=== PATIENT | female | born 1980 | race Two or more races ===

== ENCOUNTER → 2025-02-06 06:55 | Outpatient (BNV) | payer OTHER, SELFPAY | PROVIDERS: Visit Provider Radiology Diagnostic Radiology | DX: M25.551 Pain in right hip (principal); M25.512 Pain in left shoulder | CPT/HCPCS: 73030; 73502 ==

== ENCOUNTER 2025-02-06 07:20 | Emergency (ER) | payer OTHER, MEDICAID, SELFPAY ==
--- NOTE | ~2025-02-06 | XR_ITS ---
EXAMINATION: XR HIP 2 OR MORE VIEWS RIGHT HISTORY: fall COMPARISON: There are no prior studies available for comparison. FINDINGS: Two views of the right hip are submitted. Osseous mineralization is normal. There is no fracture or dislocation. The joint space is maintained. The soft tissues are unremarkable. XR/XR hip RT min 2V IMPRESSION: Unremarkable examination of the right hip. Electronically signed by: Bradford Askwe MD 02/06/2025 07:59 AM EDT
--- NOTE | ~2025-02-06 | XR_ITS ---
EXAMINATION: XR SHOULDER 2 OR MORE VIEWS LEFT HISTORY: fall COMPARISON: There are no prior studies available for comparison. FINDINGS: Four views of the left shoulder are submitted. Osseous mineralization is normal. There is no fracture or dislocation. The glenohumeral and acromioclavicular joint spaces are preserved. Incidental note is made of a calcified granuloma in the left upper lobe of the lung. XR/XR shoulder LT min 2V IMPRESSION: Unremarkable examination of the left shoulder. Electronically signed by: Bradford Askew MD 02/06/2025 08:00 AM EDT
[2025-02-06 07:31] VITALS: BP 109/58; PULSE 73; RESP 17; TEMP 36.1; O2SAT 99; BMI 28.3
[2025-02-06 08:45] VITALS: BP 110/72; PULSE 65; PULSE 67; RESP 18; TEMP 36.6; O2SAT 100
--- OUTSIDE RECORDS SUMMARY | 2025-02-06 08:49 | XMS_ITS | Clinical Summary ---
Author Organization [employer] [facility] ity Address [address] [place] [address] Care Team Providers Care Regulatory Affairs Consultant Name Role Phone Unavailable Primary Care Provider Unavailabl e Social History Tobacco Use Types Packs/Day Years Used Date Smoking Tobacco: Never Assessed Comments Unknown Sex and Gender Information Value Date Recorded Sex Assigned at Not on file Legal Sex Female 8:51 PM EST Gender Identity Not on file Sexual Orientation Not on file Plan of Treatment Health Maintenance Due Date Last Done Comments Breast Cancer Screening 1980 DTaP,Tdap,and Td Vaccines (1 - Tdap) 1999 Hepatitis B Vaccines (1 of 3 - 19+ 3-dose series) 1999 Cervical Cancer Screening: P ap Smear 2001 HIV Screening 08/04/2023 Hepatitis C Screening 08/04/2023 Social Influencers of Health Screening 08/04/2023 COVID-19 Vaccine (2023-2 5 season) 2024 Depression Screening 07/10/2024 Influenza Vaccine (#1) 2025 HIB Vaccines Aged Out No longer eligi ble based on patient's age to complete this topic HPV Vaccines Aged Out No longer eligi ble based on patient's age to complete this topic Hepatitis A Vaccines Aged Out No long er eligible based on patient's age to complete this topic IPV Vaccines Aged Out No longer eligi ble based on patient's age to complete this topic MMR Vaccines Aged Out No longer eligi ble based on patient's age to complete this topic Meningococcal ACWY Vaccine Aged Out N o longer eligible based on patient's age to complete this topic Meningococcal B Vaccine Aged Out No l onger eligible based on patient's age to complete this topic Pneumococcal Vaccine: Pediat rics (0 to 5 Years) and At-Risk Patients (6 to 49 Years) Aged Out No longer eligible b ased on patient's age to complete this topic RSV Immunization Patients Un prudencio 20 months Aged Out No longer eligible b ased on patient's age to complete this topic Varicella Vaccines Aged Out No longer eligible based on patient's age to complete this topic
--- NOTE | 2025-02-06 08:53 | PC.NURSE ---
44 F presents to ED with R hip and L shoulder pain from a slip and fall at work today on a wet floor, no LOC or head strike. Pt sts she slipped and fell at work last week as well. Pt is ambulatory, A+OX4, uzbek speaking. RR even and unlabored, denies CP or SOB. Denies n/v/c/d. C/o 8/10 pain. No other complaints.
--- NOTE | 2025-02-06 09:08 | ED_ITS ---
HPI - Fall General Chief Complaint: Fall Stated Complaint: Fall @ work - arm pain Time Seen by Provider: 02/06/25 09:04 Source: patient, RN notes reviewed and old records reviewed Mode of arrival: ambulatory Limitations: no limitations History of Present Illness ED Provider: Rosendo Esposito PA-C HPI Narrative: 44 yo female presents to the ER for evaluation of left should pain and right hip pain s/p 2 mechanical falls at work 2 days ago. she states her initial fall was 1 week ago when she tripped over a mop and fell onto her right hip. Two days ago she slipped on water and fell onto her left shoulder. She has had limited range of motion of the left shoulder and pain since then. She is right-hand dominant. She did not hit her head or lose consciousness with either fall. She is not on anticoagulation. She reports minimal relief with Aleve at home. She denies any numbness, tingling or weakness in her left arm but it is difficult for her to arrange the shoulder due to pain that is located anteriorly, laterally and posteriorly. She has no chest pain or shortness of breath associated with this. Her right hip is sore when she ambulates and she is walking with a limp. She denies any swelling in the leg, no pain in the right knee or ankle MD complaint: fall Onset (ago): day(s) Fall from: standing Fall witnessed: yes, by bystander Place fall occurred: work Loss of consciousness: none Prolonged down time: no Symptoms prior to fall: none Context: tripped/slipped Location of injury: pelvis (right) Location of injury - extremities: left: shoulder Severity: moderate Severity scale (1-10): 7 Quality: aching Associated symptoms (after fall): denies Related Data Previous Rx's ?Medication ?Instructions ?Recorded cyclobenzaprine 10 mg tablet 10 mg PO TID PRN muscle p ain #10 02/06/25 tabs lidocaine 5 % topical patch 1 patch topical DAILY #15 ea 02/06/25 naproxen 500 mg tablet 500 mg PO BID PRN pain #20 t abs 02/06/25 Allergies Allergy/AdvReac Type Severity Reaction Status Date / Time No Known Allergies Allergy Verified 02/06/25 07:35 Review of Systems Review of Systems: Yes all other systems are reviewed and are negative [facility] Social History Social History Smoked in Last 30 Days: No Use of substances other than those prescribed or required for medical reasons: No Advance Directives: No Advance Directives Information Provided: Yes Do you have a plan to hurt others: No Plan Patient : No Physical Exam Exam: Exam: Appearance: Alert. Oriented X3. No acute distress. HEENT: normal inspection CVS: Normal heart rate and rhythm. Pulses normal. Respiratory: No respiratory distress. nontender chest wall. Lungs are clear throughout Skin: Skin warm and dry. Normal skin color. Normal skin turgor. No rashes. Extremities: normal inspection of all 4 extremities. No joint swelling or deformities. Left shoulder with tenderness to the left AC joint. Limited passive range of motion anteriorly and laterally during abduction, pain elicited at 90 degrees. Unable to raise left arm above the head. Positive empty can test. right hip is normal to inspection without any ecchymosis or swelling. She has soft tissue tenderness laterally Neuro: Oriented X 3. No motor deficit. No sensory deficit. slightly antalgic but steady gait Vital Signs: Vital Signs: Last Vital Signs Temp 0 F L 02/06/25 10:05 Pulse 65 02/06/25 10:05 Resp 18 02/06/25 10:05 BP 113/74 02/06/25 10:05 Pulse Ox 100 02/06/25 10:05 O2 Del Method Room Air 02/06/25 10:05 BMI result Body Mass Index 28.3 Medical Decision Making Medical Decision Making MDM Narrative: 44-year-old Chinese-speaking female presents to the ER for evaluation of left shoulder pain and right hip pain after multiple falls at work in the last week. She is ambulatory. She has limited range of motion of the left upper extremity due to pain. Pain is pretty diffuse and can be elicited when palpating anteriorly, laterally and posteriorly. She has positive empty can test. Her x- ray is negative. There is concern for possible ligamentous injury rotator cuff injury so it is advised that she follows up with orthopedics for further evaluation and treatment. set up mold technician used to discuss supportive care including activity modification, NSAIDs, rest, ice. Patient agrees with plan. As far as her hip is concerned most likely soft tissue injury and contusion. No evidence of fracture on her x-ray. NSAID, rest, ice or heat will also help with this pain. Stable for discharge home. Differential Diagnosis Differential Diagnoses: The differential diagnosis associated with the presentation includes left shoulder sprain / strain, AC joint separation, rotator cuff injury, clavicular fracture, proximal humerus fracture right hip fracture, right hip contusion, bursitis, pubic rami fracture Independent Interpretation I performed an independent interpretation of an: Plain X-Ray Interpretation: No acute fracture appreciated in the left shoulder or the right hip Prescription Management I considered prescription management with: Pain Medication Critical Care Time Critical Care Time Critical Care Time: No Discharge Plan Discharge Clinical Impression: Acute pain of left shoulder Contusion of hip, right Qualifiers: Encounter type: initial encounter Qualified Code(s): S70.01XA - Contusion of right hip, initial encounter Patient Disposition: Home, Self-Care Instructions: Shoulder Pain (ED), Hip Contusion (ED) Additional Instructions: your x-rays today were normal. There is concern for possible ligamentous injury in your shoulder. Recommend following up with orthopedics for further evaluation and treatment. Take the prescribed medications as directed. Recommend ice several times per day as needed for pain. Avoid heavy lifting or any movements that exacerbate the pain in your shoulder. Follow up with her primary care doctor If you develop new or worsening symptoms call 911 or come back to the ER for further evaluation. Prescriptions: New cyclobenzaprine 10 mg tablet 10 mg PO TID PRN (Reason: muscle pain) Qty: 10 0RF lidocaine 5 % adhesive patch,medicated 1 patch topical DAILY Qty: 15 0RF Rx Instructions: leave on most painful area for up to 12 hrs naproxen 500 mg tablet 500 mg PO BID PRN (Reason: pain) Qty: 20 0RF Referrals: [facility] [place] [facility] [Provider Group] Referral Note: left shoulder injury concern for rotator cuff injury Stand Alone Forms: Work/School Release Interventions: ED Discharge Assessment Last Done: 02/06/25 10:05 Discharge Date/Time: 02/06/25 10:06 Print Language: Malay
[2025-02-06 10:05] VITALS: BP 113/74; PULSE 65; RESP 18; TEMP -17.7; TEMP 0; O2SAT 100
== END 2025-02-06 10:06 | disposition home or self-care (01) ==
PROVIDERS: Emergency Provider Emergency Medicine Emergency Medical Services
DX: S70.01XA Contusion of right hip, initial encounter (principal); R10.2 Pelvic and perineal pain; M25.551 Pain in right hip; M25.512 Pain in left shoulder; W01.0XXA Fall on same level from slipping, tripping and stumbling without subsequent striking against object, initial encounter; Y93.E5 Activity, floor mopping and cleaning; Y92.000 Kitchen of unspecified non-institutional (private) residence as the place of occurrence of the external cause; Y99.8 Other external cause status
CPT/HCPCS: 73030; 73502; 99283; 99284

== ENCOUNTER → 2025-02-19 12:34 | Outpatient (BNVA) | payer OTHER, SELFPAY | PROVIDERS: Visit Provider Physician Assistant Medical | DX: S46.912D Strain of unspecified muscle, fascia and tendon at shoulder and upper arm level, left arm, subsequent encounter (principal); W01.0XXD Fall on same level from slipping, tripping and stumbling without subsequent striking against object, subsequent encounter | CPT/HCPCS: 99204 ==

== ENCOUNTER → 2025-03-05 13:11 | Outpatient (BNVA) | payer OTHER, SELFPAY | PROVIDERS: Visit Provider Physician Assistant | DX: S46.912D Strain of unspecified muscle, fascia and tendon at shoulder and upper arm level, left arm, subsequent encounter (principal); W01.0XXD Fall on same level from slipping, tripping and stumbling without subsequent striking against object, subsequent encounter | CPT/HCPCS: 99213 ==

== ENCOUNTER 2025-03-13 18:28 | Outpatient (REF) | payer OTHER, SELFPAY ==
--- NOTE | ~2025-03-13 | MR_ITS ---
EXAMINATION: MR SHOULDER WITHOUT CONTRAST, LEFT CLINICAL INFORMATION: Pain and limited range of motion, left shoulder COMPARISON: Correlated to x-ray dated February 06, 2025. TECHNIQUE: MRI of the shoulder without contrast was performed on a high-field scanner. FINDINGS: ROTATOR CUFF: There is mild signal abnormality within the mild tendon fibers of the supraspinatus tendon and supraspinatus tendon insertion. Subcortical cyst in the humeral head at the supraspinatus tendon insertion. There is some small amount of fluid in the superior margin of the supraspinatus myotendinous, and tendon region. There is no retraction of the supraspinatus tendon. There is trace of fluid surrounding the infraspinatus tendon. The subscapularis is intact without signal abnormality. BICEPS: The bicipital long tendon is intact with the minimal trace of fluid surrounded the sheath. CORACOACROMIAL ARCH: The undersurface of the acromion is curved with there is inferior spur at the acromioclavicular joint resulting in superior concave deformity of the mild tendon of the supraspinatus. Degenerative changes along the articular surface of the acromioclavicular joint and trace of fluid. LABRUM/CAPSULE: Anterior and posterior labrum are intact. There is a small amount of free fluid in the glenohumeral joint. GLENOHUMERAL JOINT/MARROW: Subchondral cyst formation in the greater tuberosity of the humerus. There is small amount of free fluid in the glenohumeral joint extending into the subcoracoid bursa. There is an 8.5 mm septated hyperintense T2 lesion at the left humeral anatomic neck. MR/MR shoulder LT wo con IMPRESSION: Supraspinatus and infraspinatus tendinosis/tendinopathy secondary to inferior acromioclavicular joint spur. Impingement syndrome should be considered. No full-thickness rotator cuff tendon tear. Bone contusion, greater tuberosity left humerus. Probable mild subcoracoid bursitis. 8.5 mm, probable benign bone lesion, anatomic neck, left humerus. . Electronically signed by: Cisco Sarabia MD 03/14/2025 09:32 AM EDT
--- OUTSIDE RECORDS SUMMARY | 2025-03-13 18:32 | XMS_ITS | Clinical Summary ---
Author Organization [employer] [facility] ity Address [address] [place] [address] Care Team Providers Care Certified Surgical Technologist Name Role Phone Unavailable Primary Care Provider [...] 08/04/2023 Social Influencers of Health Screening 08/04/2023 Depression Screening 07/10/2024 COVID-19 Vaccine (2023-2 5 season) 2025 Influenza Vaccine (#1) 2025 HIB Vaccines Aged [...]
== END 2025-03-13 18:29 | disposition home or self-care (01) ==
LOC: HO.MRI 18:28
PROVIDERS: Visit Provider Internal Medicine
DX: M25.512 Pain in left shoulder (principal)
CPT/HCPCS: 73221

== ENCOUNTER → 2025-03-13 18:35 | Outpatient (BNV) | payer OTHER, SELFPAY | PROVIDERS: Visit Provider Radiology Diagnostic Radiology | DX: M75.32 Calcific tendinitis of left shoulder (principal) | CPT/HCPCS: 73221 ==

== ENCOUNTER → 2025-03-19 12:55 | Outpatient (BNVA) | payer OTHER, SELFPAY | PROVIDERS: Visit Provider Physician Assistant | DX: M75.52 Bursitis of left shoulder (principal); M77.8 Other enthesopathies, not elsewhere classified | CPT/HCPCS: 99213 ==

== ENCOUNTER 2025-04-09 14:00 | Outpatient (RCR) | payer OTHER, SELFPAY ==
--- NOTE | 2025-03-13 16:53 | MHC.PT.EP ---
[facility] [place] Office [place] Office [place] Office [address] Wendy Nuñez [address] [phone] F: [phone] F: [phone] F: [phone] F: [phone] Physical Therapy Plan of Care Date of Evaluation: 03/11/25 Date of Surgery: Diagnosis: L shoulder injury. Assessment: Pt is a 44 y/o RHD female referred to PT for eval and treat of L shoulder injury sustained on 02/04/25 stating she was carrying a tray and fell forward with arms out forward and her injury is resulting in decreased tolerance and ability for reaching high shelves, dressing pullovers, performing heavy or repetitive UE HH chores, lifting objects of weight, laying on her L side, as well as washing and dressing her hair and neck secondary to decreased R shoulder ROM and strength, painful MMT, TTP of R shoulder, and pain with activity. Pt is deemed an appropriate candidate to receive skilled PT services to address their physical impairments in order to improve their functional ability. Frequency and Duration: The patient will be seen 2 x/ wk x 5 wks. Short Term Goals: Initiate home program. Improve baseline pain to < 5/10; initial: 6-8/10. Shelter Goals: Pt will be able to reach high shelves with managed Sx. Pt will be able to perform hair care and dressing with managed Sx. Pt will be able to push and pull with L arm with managed Sx. Pt will improve SPADI outcome measure by at least 13 points. Pt will improve L shoulder ER strength by at least 1/2 MMT grade. Treatment Plan: Modalities to reduce pain, spasms and effusion. Manual therapy to restore motion and function. Therapeutic exercise to improve strength and flexibility. Neuromuscular re-education for posture and balance. Therapeutic activities to return to functional activities of daily living. Electronically signed by: Kanu Campbell PT. Please sign and return to therapist. Thank you for your referral.
--- NOTE | 2025-04-16 14:15 | MHC.PT.DC ---
[facility] [place] Office [place] Office [place] Office [address] Wendy Nuñez [address] [phone] F: [phone] F: [phone] F: [phone] F: [phone] Physical Therapy Discharge Report Diagnosis: L shoulder injury. Date of Surgery: Date of Evaluation: 03/11/25 Date of Discharge: 04/16/25 Treatments to Date: 6 Cancellations to Date: No Shows to Date: Discharge Status: Visit Non-compliance Discharge Summary: Yaritza has logged 5 no show appointments and is DC'd per attendance policy. Electronically signed by: Kanu Campbell PT. Please sign and return to therapist. Thank you for your referral.
== END 2025-04-16 14:15 | disposition home or self-care (01) ==
LOC: HO.PT 14:00
PROVIDERS: Visit Provider Physician Assistant
DX: S49.92XD Unspecified injury of left shoulder and upper arm, subsequent encounter (principal)
CPT/HCPCS: 97014; 97110; 97161; 97530